=== PATIENT | female | born 1990 | race Caucasian/White ===

== ENCOUNTER → 2019-10-23 08:19 | Outpatient (CLI) | payer OTHER, SELFPAY ==
--- NOTE | ~2019-10-23 | US_ITS ---
EXAMINATION: US OB limited EXAM DATE: 10/23/2019 08:52 INDICATION: Follow-up low lying placenta. Late second trimester. TECHNIQUE: Pelvic obstetrical transabdominal sonogram was performed by a technologist. There are mu ltiple grayscale and Doppler images available for interpretation. Comparison is made to prior examina tion from 08/23/2019. FINDINGS: Placental margin to internal cervical os distance is 1.8 cm low lying (previous measurement 1.2 cm). There is a single fetus identified in vertex presentation with a heart rate of 149 beats pe r minute. The placenta is located in the posterior position. There is no sonographic evidence of ret roplacental hemorrhage identified. There is subjectively expected amount of amniotic fluid. IMPRESSION: 1. Single fetus in vertex presentation with heart rate 149 beats per minute. 2. Low-lying placenta, margin 1.9 cm from internal cervical os. Reviewed, dictated and finalized at location B.
== END ==
PROVIDERS: Visit Provider Obstetrics & Gynecology Gynecologic Oncology
DX: O44.40 Low lying placenta NOS or without hemorrhage, unspecified trimester (principal); Z3A.00 Weeks of gestation of pregnancy not specified
CPT/HCPCS: 76815

== ENCOUNTER → 2019-11-24 10:07 | Outpatient (CLI) | payer OTHER, SELFPAY ==
--- NOTE | ~2019-11-24 | US_ITS ---
US OB limited 11/24/2019 10:33 Indication: Low-lying placenta Procedure: Real-time Limited obstetrical ultrasound Comparison: Ultrasound dated 10/23/2019 Findings: There is a single living intrauterine in breech presentation. Placenta is posteri or measuring 4.3 cm to the cervix. heart rate is 163 BPM. Amniotic fluid is subjectively normal . Impression: 1: Posterior placenta measuring 4.3 cm to the cervix. Reviewed, dictated and finalized at location A. Impression: 1: Posterior placenta measuring 4.3 cm to the cervix.
== END ==
PROVIDERS: Visit Provider Obstetrics & Gynecology
DX: O44.42 Low lying placenta NOS or without hemorrhage, second trimester (principal)
CPT/HCPCS: 76815